=== PATIENT | female | born 1950 | race Caucasian/White ===

== ENCOUNTER → 2018-01-08 | Outpatient (CLI) | payer OTHER, MEDICARE | LOC: GMAL 18:12 | PROVIDERS: ATTEND Family Medicine | DX: N30.00 Acute cystitis without hematuria (principal) ==

== ENCOUNTER → 2018-01-11 | Outpatient (CLI) | payer MEDICARE, OTHER ==
--- NOTE | 2018-01-11 09:39 | MRI ---
EXAM DESCRIPTION: Lumbar Spine w/o Contrast MRI. CLINICAL HISTORY: RADICULOPATHY COMPARISON: MRI lumbar spine 06/18/2014. TECHNIQUE: Multiplanar, multiple standard sequences, non contrast MRI, lumbar spine. FINDINGS: L5-S1: Disc space significantly decreased anteriorly with marked desiccation. Minimal left paracentral disc or spur bulge abutting the thecal sac. No canal stenosis. Modic type II endplate reactive changes bilaterally encroaching on the foramina with mild to moderate narrowing on the right and mild narrowing on the left. Minimal facet arthrosis minimal flavum ligament hypertrophy. L4-5: Minimal disc desiccation and minimal disc space loss. Minimal anterior bulging. Posterior midline bulging 4 mm also into the base of the left foramen which is moderately narrowed. Right foramen is patent. Moderate arthrosis right facet and minimal left. Bilateral flavum ligament hypertrophy. AP canal diameter 9 mm. L3-4: Minimal disc desiccation. Tiny posterior bulge. Hypertrophy of the bilateral flavum ligaments with moderate canal narrowing. Facets negative. Bilateral foramina are patent. L2-3: Minimal disc desiccation. Posterior broad-based minimal disc bulge 2 mm. Mild canal narrowing. Posterior elements unremarkable. Bilateral foramina are patent. L1-2: Minimal disc desiccation and anterior disc bulging. Posterior elements unremarkable. Canal and foramina are patent. Conus terminates at L1. T12-L1: Minimal disc desiccation with no bulging. Posterior elements unremarkable. Canal and foramina are patent. Paravertebral soft tissues show muscle atrophy.. Edema-like marrow signal on inversion recovery sequence the bilateral L4 pedicles, more on the right. No change. Edema like signal in the marrow of the bilateral L5 pedicles has decreased since the prior study. Normal marrow signal in the remaining vertebral bodies and the posterior elements. Vertebral bodies are not compressed at any level. IMPRESSION: 1. Moderate spondylosis and progressive disc space loss at L5-S1 with canal and foraminal narrowing. Disc space has decreased since the prior study. 2. L4-5 disc desiccation and disc space loss and left side spondylosis. Space has decreased slightly since the prior study. Canal narrowing is also increased 3. Marrow edema at L5 pedicles has decreased since the prior study. Stable signal in the L4 pedicles. Electronically signed by: Evangelist Tolentino MD 01/11/2018 9:38 AM [facility]
== END ==
LOC: MRI 08:00
PROVIDERS: ATTEND Family Medicine
DX: M54.16 Radiculopathy, lumbar region (principal); M47.897 Other spondylosis, lumbosacral region

== ENCOUNTER → 2018-07-29 | Outpatient (CLI) | payer MEDICARE, OTHER | LOC: GMAL 10:46 | PROVIDERS: ATTEND Family Medicine | DX: D51.3 Other dietary vitamin B12 deficiency anemia (principal); R53.83 Other fatigue; E55.9 Vitamin D deficiency, unspecified ==